=== PATIENT | female | born 1985 | race Caucasian/White ===

== ENCOUNTER → 2016-07-26 21:58 | Outpatient (CLI) | payer MEDICARE ==
[2014-02-09 15:28] VITALS: BMI 29.0
[~2016-07-26 21:58] MED LIST: ABILIFY10 MG PO; CELEXA20 MG PO; IBUPROFEN600 MG PO; PEPCID20 MG PO; PERCOCET 5-3251 TAB PO; PHENERGAN25 MG RC; PRENATABS RX TA1 TAB PO; TUMS500 MG PO; ZOFRAN4 MG PO
== END | disposition home or self-care (01) ==
LOC: D.LDO 21:58
DX: O36.8120 Decreased fetal movements, second trimester, not applicable or unspecified (principal); Z3A.24 24 weeks gestation of pregnancy

== ENCOUNTER → 2016-08-17 12:49 | Outpatient (CLI) | payer MEDICARE ==
[2014-02-09 15:28] VITALS: BMI 29.0
== END | disposition home or self-care (01) ==
LOC: D.US 12:45
DX: O28.1 Abnormal biochemical finding on antenatal screening of mother (principal)

== ENCOUNTER → 2016-10-19 16:21 | Outpatient (CLI) | payer MEDICARE ==
[2014-02-09 15:28] VITALS: BMI 29.0
[2016-10-19 16:52] LABS: BASOPHILS 0.1 % (0-2); EOSINOPHILS 0.1 % (0-7); HEMATOCRIT 39.1 % (36.0-48.0); HEMOGLOBIN 13.4 g/dL (12-16); IMMATURE GRANULOCYTES 0.4 % (0-5); LYMPHOCYTES 11.8 % (15-50); MCH 30.8 pg (26.0-34.0); MCHC 34.3 g/dL (31.0-37.0); MCV 89.9 fL (80.0-100.0); MEAN PLATELET VOLUME 10.2 fL (7.4-10.4); MONOCYTES 2.9 % (2-11); NEUTROPHILS 84.7 % (40-80); PLATELET COUNT 258 10x3/uL (130-400); RBC 4.35 10x6/uL (4.00-5.40); RDW 12.6 % (11.5-14.5); WBC 16.9 10x3/uL (4.8-10.8)
[2016-10-19 17:01] LABS: APPEARANCE CLEAR (CLEAR); BILIRUBIN NEGATIVE (NEGATIVE); COLOR YELLOW (YELLOW); GLUCOSE NEGATIVE (NEGATIVE); KETONE NEGATIVE (NEGATIVE); LEUKOCYTE ESTERASE TRACE (NEGATIVE); NITRITE NEGATIVE (NEGATIVE); PROTEIN NEGATIVE (NEGATIVE); SPECIFIC GRAVITY 1.005 (1.005-1.020); UROBILINOGEN NORMAL (NORMAL)
[2016-10-19 17:02] LABS: BACTERIA FEW /hpf (NONE SEEN); EPITHELIAL CELLS 0-5 /hpf (0-5); RED CELLS - URINE 0-5 /hpf (0-5); WHITE CELLS - URINE 0-5 /hpf (0-5)
[2016-10-19 17:09] LABS: ALBUMIN 2.6 g/dL (3.4-5.0); ALKALINE PHOSPHATASE 83 U/L (46-116); ALT (SGPT) 22 U/L (10-68); BILIRUBIN - DIRECT 0.08 mg/dL (0.00-0.30); BILIRUBIN - INDIRECT 0.13 mg/dL (0.00-1.00); BILIRUBIN - TOTAL 0.21 mg/dL (0.2-1.3); CALC OSMOLALITY 269 mosm/kg (275-300); CALCIUM 8.9 mg/dL (8.5-10.1); CHLORIDE - SERUM 102 mmol/L (98-107); CREATININE - SERUM 0.9 mg/dL (0.6-1.3); GLUCOSE 97 mg/dL (74-106); PROTEIN - SERUM 6.7 g/dL (6.4-8.2); SODIUM 136 mmol/L (136-145); UREA NITROGEN 6 mg/dL (7-18); URIC ACID 6.1 mg/dL (2.6-7.2); eGFR NON AFRICAN AMERICAN 76 mL/min (90-120)
== END | disposition home or self-care (01) ==
LOC: D.LDO 16:21
PROVIDERS: Obstetrics & Gynecology
DX: Z34.83 Encounter for supervision of other normal pregnancy, third trimester (principal); Z3A.36 36 weeks gestation of pregnancy; R03.0 Elevated blood-pressure reading, without diagnosis of hypertension

== ENCOUNTER → 2016-10-26 16:44 | Outpatient (CLI) | payer MEDICARE ==
[2014-02-09 15:28] VITALS: BMI 29.0
[2016-10-26 17:46] LABS: ALBUMIN 2.3 g/dL (3.4-5.0); ALKALINE PHOSPHATASE 77 U/L (46-116); ALT (SGPT) 22 U/L (10-68); BILIRUBIN - DIRECT 0.09 mg/dL (0.00-0.30); BILIRUBIN - INDIRECT 0.09 mg/dL (0.00-1.00); BILIRUBIN - TOTAL 0.18 mg/dL (0.2-1.3); CALC OSMOLALITY 274 mosm/kg (275-300); CALCIUM 8.5 mg/dL (8.5-10.1); CARBON DIOXIDE 22.5 mmol/L (21.0-32.0); CHLORIDE - SERUM 104 mmol/L (98-107); CREATININE - SERUM 0.7 mg/dL (0.6-1.3); GLUCOSE 92 mg/dL (74-106); POTASSIUM - SERUM 3.6 mmol/L (3.5-5.1); PROTEIN - SERUM 6.2 g/dL (6.4-8.2); SODIUM 138 mmol/L (136-145); UREA NITROGEN 11 mg/dL (7-18); URIC ACID 6.1 mg/dL (2.6-7.2); eGFR NON AFRICAN AMERICAN > 90 mL/min (90-120)
[2016-10-26 18:05] LABS: BASOPHILS 0.2 % (0-2); EOSINOPHILS 0.2 % (0-7); HEMATOCRIT 34.2 % (36.0-48.0); HEMOGLOBIN 11.5 g/dL (12-16); IMMATURE GRANULOCYTES 0.4 % (0-5); LYMPHOCYTES 22.4 % (15-50); MCH 30.7 pg (26.0-34.0); MCHC 33.6 g/dL (31.0-37.0); MCV 91.4 fL (80.0-100.0); MEAN PLATELET VOLUME 10.3 fL (7.4-10.4); NEUTROPHILS 72.8 % (40-80); PLATELET COUNT 238 10x3/uL (130-400); RBC 3.74 10x6/uL (4.00-5.40); RDW 12.7 % (11.5-14.5); WBC 10.7 10x3/uL (4.8-10.8)
== END | disposition home or self-care (01) ==
LOC: D.LDO 16:44
PROVIDERS: Obstetrics & Gynecology
DX: O16.3 Unspecified maternal hypertension, third trimester (principal); Z3A.37 37 weeks gestation of pregnancy

== ENCOUNTER 2016-11-07 02:52 | Inpatient (IN) | payer MEDICARE ==
[~2016-11-07] VITALS: Ht 172.7 cm; Wt 89.8 kg
[2016-11-07] MEDS ORDERED: ZOFRAN4 MG PO (03:23)
[2016-11-07] MEDS ORDERED: PRENATAL COMPLE1 TAB PO (03:23)
[2016-11-07 03:24] VITALS: BP 126/77; Ht 172.7 cm; Wt 89.8 kg
[2016-11-07 03:24] LABS: HEMATOCRIT 35.9 % (36.0-48.0); HEMOGLOBIN 12.2 g/dL (12-16); MCH 31.1 pg (26.0-34.0); MCV 91.6 fL (80.0-100.0); MEAN PLATELET VOLUME 10.4 fL (7.4-10.4); RBC 3.92 10x6/uL (4.00-5.40); RDW 12.8 % (11.5-14.5); WBC 8.3 10x3/uL (4.8-10.8)
[2016-11-07 06:38] LABS: UDS - AMPHET NEGATIVE QUAL (NEGATIVE); UDS - BARB NEGATIVE QUAL (NEGATIVE); UDS - BENZO POSITIVE QUAL (NEGATIVE); UDS - COCAINE NEGATIVE QUAL (NEGATIVE); UDS - METH NEGATIVE QUAL (NEGATIVE); UDS - OPIATE POSITIVE QUAL (NEGATIVE); UDS - PCP NEGATIVE QUAL (NEGATIVE); UDS - THC POSITIVE QUAL (NEGATIVE)
--- NOTE | 2016-11-07 11:22 | NUR ---
TRANSFERRED TO ROOM 1274 FOR . INFANT TO ROOM FOR BONDING TIME WITH MOTHER.
[2016-11-07 12:05] VITALS: BP 142/74
--- NOTE | 2016-11-07 12:08 | OP ---
PATIENT NAME: BLAIR BASS MEDICAL RECORD: [id number] LOCATION:[facility] ADMISSION DATE:11/07/16 SURGEON: RICK HERRERA MD DATE OF OPERATION: 11/07/2016 Delivery Note Spontaneous vaginal delivery of male infant weighing 5 pounds 5 ounces, 8 and 9 Apgars, no episiotomy. First degree laceration repaired with 3-0 chromic suture. Spontaneous delivery of intact-appearing placenta. Meconium stained fluid, meconium stained membranes and blood clot at the time of delivery consistent in appearance with abruption. ESTIMATED BLOOD LOSS: 400 cc. COMPLICATIONS OF DELIVERY: None. TRANSINT:[id number] Voice Confirmation ID: [id number] DOCUMENT ID: [id number] RICK HERRERA MD at 1208 CC: [id number] DICTATION DATE: 11/07/16 0604 WINDOW TREATMENT INSTALLER: 11/07/16 0635 ADM IN [place] [id number] [place] [address]
--- NOTE | 2016-11-07 12:17 | NUR ---
DR HERRERA ON L&D. NOTIFIED OF URINE DRUG SCREEN RESULTS AND CURRENT BP. NOTIFIED ELEVATED BPS NOTED AFTER DELIVERY BUT DECREASED AFTER PAIN MEDICATION. CURRENT BP 142/74.
--- NOTE | 2016-11-07 14:06 | NUR ---
EYES CLOSED. RESPIRATIONS EVEN. SIDERAILS UP X 2, CALL LIGHT IN REACH. INFANT IN NURSERY.
--- NOTE | 2016-11-07 16:07 | NUR ---
AWAKE BOTTLEFEEDING . REQUESTED A MOTRIN FOR C/O OF 5/10 BACK PAIN AND SOME CRAMPING. MOTRIN 600 MG GIVEN PO. BP 158/85 SITTING UP. RECHECK BP 144/88. C/O PAIN AT SALINE LOCK SITE AND REQUEST REMOVAL. DC'D SALINE LOCK WITHOUT DIFF. GUAZE PRESSURE DRESSING PLACED. NO ADDITIONAL REQUESTS. SIDE RAILS UP X 2, CALL LIGHT IN REACH.
--- NOTE | 2016-11-07 16:55 | NUR ---
MARTIN QUINTANILLA CALLED SAYING SHE WAS PRESENT FOR THIS PATIENT'S DELIVERY THIS MORNING. SAYS THE PATIENT JUST TEXT HER AND SAID "THAT HER BABY TESTED POSITIVE FOR SOMETHING AND SHE GAVE THEM MY ADDRESS. I JUST WANT SOMEONE TO KNOW THAT SHE DOES NOT LIVE AT HERE. THEY ARE MOVING AND BETWEEN HOUSES. THE BABY CAME A WEEK EARLY." THE ADDRESS THE WOMAN ON PHONE GAVE WAS [address] [place] [id number]. Ines GROSS RN NURSERY NOTIFIED TO LET [facility] KNOW ABOUT ADDRESS. WOMAN ON PHONE WAS CONCERNED SOMEONE WILL COME TO HER HOUSE.
--- NOTE | 2016-11-07 17:09 | NUR ---
UP TO BATHROOM TO VOID PER SELF. SAYS BACK IS BETTER, /10. TO LET RN KNOW IF ANYTHING ELSE IS NEEDED. ALSO INSTRUCTED TO MAKE SURE INFANT IS WATCH ALL THE TIME, EVEN WHEN SHE GOES INTO THE BATHROOM. VERBALIZED UNDERSTANDING.
--- NOTE | 2016-11-07 18:35 | NUR ---
SITTING UP IN BED. TEXTING ON PHONE. FOB IN ROOM. IN NURSERY. DENIES NEEDING ANYTHING AT THIS TIME. TO CALL IF ANYTHING IS NEEDED.
[2016-11-07 19:10] VITALS: BP 137/69
--- NOTE | 2016-11-07 19:10 | NUR ---
RCVD PT FROM AM SHIFT FOR CONT. PP CARE. PT LYING ON BACK IN [place] POSITION FEEDING A BOTTLE AT THIS TIME. FOB AND DHS WORKER IN ROOM. PT RATES CURRENT PAIN 5/10 IN BACK AND REPORTS THIS BEING "JUST SORE." BREATH SOUNDS CLEAR AND UNLABORED X2. BOWEL SOUNDS ACTIVE X4. FUNDUS FIRM, ML, U/1. SMALL LOCHIA RUBRA NOTED ON PERIPAD. HR-RRR, PPP. NO EDEMA NOTED TO BLE. PT STATES DR HERRERA HAD ORDERED LEXAPRO 10MG FOR HER 'MENTAL ISSUES' AND INQUIRES IF SHE CAN GET THAT AND ABILIFY WHILE SHE IS IN HOSPITAL. ADV PT WILL CALL DR HERRERA. PT DENIES FURTHER NEEDS AT THIS TIME. BED LOW, WHEELS LOCKED, CL IN REACH, SIDE RAILS UP X2.
[2016-11-07] MEDS ORDERED: LEXAPRO10 MG PO (19:27)
--- NOTE | 2016-11-07 20:07 | NUR ---
REPORT GIVEN TO DR HERRERA ON PT REQUEST FOR LEXAPRO. PER DR HERRERA PT MAY HAVE THE 1O MG OR 20 MG IF SHE WANTS THE HIGHER DOSE. WILL D/C WITH PATIENT.
--- NOTE | 2016-11-07 20:08 | NUR ---
DISCUSSED ORDERS WITH PT. PT DECIDES SHE WANTS THE 20MG TABLET. ADV PT WILL GET THE ORDER PUT IN. CALL MADE TO HOUSE SUP TO BRING MEDICATIONS AT THIS TIME.
--- NOTE | 2016-11-07 20:37 | NUR ---
PAIN REASSESSMENT COMPLETE. PT RATES PAIN 2/10 AND TOLERABLE. 2% MILK PROVIDED PER PT REQUEST. PT DENIES FURTHER NEEDS AT THIS TIME.
--- NOTE | 2016-11-07 21:07 | NUR ---
pt sitting up in bed bonding with infant. fob remains at bedside. pt denies needs for sitz bath or pain at this time.
--- NOTE | 2016-11-07 21:36 | NUR ---
LEXAPRO 20MG X1 TAB GIVEN PER ORDERS SEE EMAR. PT DENIES FURTHER NEEDS AT THIS TIME.
--- NOTE | 2016-11-07 22:12 | NUR ---
NBN TO ROOM. INFANT TO NBN VIA OPEN CRIB PER Becky DACOSTA RN. FRESH ICE WATER PROVIDED PER PT REQUEST. BLANKET AND PILLOW PROVIDED FOR FOB. FOB REPORTS THAT HE IS GOING TO TAKE A SHOWER. SOAP PROVIDED WELL. PT DENIES FURTHER NEEDS. WILL CONT. TO MONITOR.
--- NOTE | 2016-11-08 00:02 | NUR ---
ROUNDS MADE. PT LYING ON BACK IN SEMI [place] POSITION. EYES CLOSED, RESP EVEN & UNLABORED. FOB SLEEPING ON BEDSIDE COUCH. PT LEFT UNDISTURBED AT THIS TIME.
--- NOTE | 2016-11-08 02:49 | NUR ---
PT LYING ON RT SIDE, HOB 20 DEGREES, RESP EVEN & UNLABORED. FOB REMAINS ASLEEP ON BEDSIDE COUCH. PT LEFT UNDISTURBED AT THIS TIME.
--- NOTE | 2016-11-08 04:42 | NUR ---
PT LYING ON BACK, HOB 20 DEGREES. EYES CLSOED, RESP EVEN & UNLABORED. FOB REMAINS ASLEEP ON BEDSIDE COUCH. PT LEFT UNDISTURBED AT THIS TIME.
--- NOTE | 2016-11-08 06:07 | NUR ---
PT LYING ON RIGHT SIDE. EYES CLOSED, RESP EVEN & UNLABORED. FOB SLEEPING ON BEDSIDE COUCH. PT LEFT UNDISTURBED.
--- NOTE | 2016-11-08 07:00 | NUR ---
ASSUME CARE OF THIS PATIENT. LAYING IN LOW FOWLERS, EYES OPEN. SIDE RAILS UP X 2, CALL LIGHT IN REACH. DENIES NEEDING ANYTHING AT THIS TIME. PARTNER ON COUCH. WILL COMPLETE SHIFT ASSESSMENT AFTER BREAKFAST.
[2016-11-08 07:19] LABS: HEMATOCRIT 33.2 % (36.0-48.0); HEMOGLOBIN 11.2 g/dL (12-16); MCH 31.1 pg (26.0-34.0); MCHC 33.7 g/dL (31.0-37.0); MCV 92.2 fL (80.0-100.0); MEAN PLATELET VOLUME 10.1 fL (7.4-10.4); RBC 3.6 10x6/uL (4.00-5.40); RDW 12.8 % (11.5-14.5); WBC 8.5 10x3/uL (4.8-10.8)
[2016-11-08 08:20] VITALS: BP 146/80
--- NOTE | 2016-11-08 08:35 | NUR ---
SHIFT ASSESSMENT COMPLETED. UP TO BATHROOM TO VOID. RUBRA SMALL, U/2 FIRM MIDLINE. SMALL ECCHYMOSIS NOTED AT EPIDURAL SITE, C/O 7/10 THROBBING PAIN AT SITE AND 7/10 ABDOMINAL CRAMPING. DESIRES TYLENOL #3 AND MOTRIN AFTER DISCUSSING OPTIONS. TYLENOL #3 1 AND MOTRIN 600 MG GIVEN PO. RHOGAM ALSO GIVEN AT THIS TIME. PT IS A NEG, IS A POS, BLEED SCREEN NEG. PT IS AWARE OF PURPOSE OF RHOGAM. FOB AND INFANT IN ROOM. DENIES NEEDING ANYTHING EXCEPT FRESH WATER. SIDE RAILS UP, CALL LIGHT IN REACH. TO CALL IF ANYTHING IS NEEDED OR WHEN DESIRES TO SHOWER. VERBALIZED UNDERSTANDING. DECLINED NICOTINE PATCH.
--- NOTE | 2016-11-08 09:50 | NUR ---
SITTING UP IN BED WITH INFANT IN ARMS. SAYS HER PAIN IS BETTER, NOW 4/10. DENIES NEEDING ANYTHING AT THIS TIME.
--- NOTE | 2016-11-08 11:15 | NUR ---
DR HERRERA VISITED PATIENT.
--- NOTE | 2016-11-08 12:51 | NUR ---
SITTING UP IN BED EATING DINNER. INFANT IN ARMS. DENIES NEEDING ANYTHING. INFORMED SHE HAS A DC ORDER WHEN INFANT IN DC'D. VERBALIZED UNDERSTANDING.
--- NOTE | 2016-11-08 15:00 | NUR ---
SITTING UP IN BED. HOLDING IN ARMS. VISITORS IN ROOM ALONG WITH FOB. DENIES NEEDING ANYTHING. TO CALL WHEN READY TO SHOWER.
--- NOTE | 2016-11-08 18:03 | NUR ---
CASE MANAGEMENT VISITED WITH PATIENT.
--- NOTE | 2016-11-08 18:21 | NUR ---
CM received consult 11/07 for today. [facility] report as mother's urine was positive for three substances. Johnny Kemp is the [facility] counselor at [phone] ext [phone]. He visited the patient last night. Await his call back regarding home visit or 72 hr hold. CM met w/ the mother, father of the baby, Robert Harvey and the maternal grandmother, Chelsea Ramírez. The has an older brother, Caesar, who is 2 years and 9 months old. The mother states they will be staying with her uncle, Vikas Andrade, in [place]. The patient's mother lives in [place]. The mother is very comfortable w/ Caesar and lying in her arms. She answered questions easily. The father is quieter. He is legally blind Both the mother and father are on disability. The grandmother works in [place]. DR Loja is the mother's PCP and she also sees the [employer] Mario Harman. She has not seen them recently as she was followed by DR Holley. She will follow up as she had been taken off her Abilify and Lexapro during her . She feels she will be going to a safe environment at her uncles. She states she visited with him frequently during her childhood. There are 3 steps to enter the home. The phone services is difficulty in areas at her uncle's. They both have cell phones, but can be reached by phone. They are waiting to see if [facility] will make the hoe visit today. The mother is expecting to be discharged but the status of the is unknown. The mother and the father wait anxiously. They have not had any involvement w/ [facility] previously. Pharmacy is [facility] in [place]. DR Gomez will be the infant's doctor. Grandmother will provide transportation at discharge. Both Caesar and the have a car seat. She states she has the necessary items for the baby. She has a bassinet. for the baby. Nurses report the family is bonding well with the . CM to follow to assist. Await [facility] plan of care.
[2016-11-08 19:32] VITALS: BP 134/66
--- NOTE | 2016-11-08 19:32 | NUR ---
RCVD PT FOR CONT. PP CARE. PT HAS HAD RHOGAM SHOT DURING AM SHIFT HOURS. PT DENIES NEED FOR DTAP. INFORMATION PROVIDED. PT AAOX3 HOLDING AT THIS TIME. FAMILY AND SMALL CHILD IN ROOM VISITING. PT RATES CURRENT PAIN 2/10 AND TOLERABLE. PT REPORTS SCANT LOCHIA RUBRA WITH NO CLOTS THROUGHOUT THE DAY. FUNDUS REMAINS FIRM. VSS, PPP, HR-RRR. NO EDEMA NOTED TO BLE. BREATHE SOUNDS CLEAR AND UNLABORED BILATERALLY. BOWEL SOUNDS ACTIVE X4. PT DENIES NEEDS AT THIS TIME. BED LOW, WHEELS LOCKED, CL IN REACH. SIDE RAILS UP X2.
--- NOTE | 2016-11-08 19:49 | NUR ---
SPOKE TO PT ABOUT POSSIBILITY OF ROOMING IN DUE TO NOT BEING DISCHARGED UNTIL TOMORROW. PT IS AGREEABLE. ADV PT WILL CALL DR HERRERA TO GET ORDER.
--- NOTE | 2016-11-08 19:52 | NUR ---
CALLED DR HERRERA TO REPORT ON POSSIBILITY OF BEING D/C TO ROOMING IN. PER DR HERRERA PT MAY D/C TO ROOMING IN STATUS AT THIS TIME.
[2016-11-08] MEDS ORDERED: IBUPROFEN600 MG PO (20:03)
--- NOTE | 2016-11-08 20:15 | NUR ---
LEXAPRO 20MG X1 TAB GIVEN PER ORDERS. SEE EMAR.
--- NOTE | 2016-11-08 20:19 | NUR ---
PT D/C INSTRUCTIONS EXPLAINED, SIGNED, AND WITNESSES. PT OFFERS NO QUESTIONS OR C/O. ADV PT SHE MAY DRESS IN OWN CLOTHES, GATHER THINGS, AND WILL PLAN TO TRANSFER TO EMPTY ROOM ON WS TO CONT. ROOMING IN STATUS. ROOMING IN AGREEMENT EXPLAINED AND SIGNED AT THIS TIME.
== END 2016-11-08 20:19 | disposition home or self-care (01) | DRG 774 ==
LOC: D.LD 02:52
PROVIDERS: ADMIT Obstetrics & Gynecology
PROC: 10E0XZZ Delivery of Products of Conception, External Approach (ICD-10-PCS; principal; 2016-11-07)
PROC: 0HQ9XZZ Repair Perineum Skin, External Approach (ICD-10-PCS; 2016-11-07)
DX: O99.334 Smoking (tobacco) complicating childbirth (principal); O45.93 Premature separation of placenta, unspecified, third trimester; Z3A.39 39 weeks gestation of pregnancy; Z37.0 Single live birth; O77.0 Labor and delivery complicated by meconium in amniotic fluid; O70.0 First degree perineal laceration during delivery